=== PATIENT | male | born 1955 | race Caucasian/White ===

== ENCOUNTER → 2019-04-15 | Outpatient (CLI) | payer OTHER ==
--- NOTE | 2019-04-15 13:48 | PCVCIMAG ---
APPROVED REPORT Study performed: 04/15/2019 10:32:30 Exam: Stress Echocardiogram Indication: Dyspnea , CAD Patient Location: Echo lab Stress Nurse: Kori Torres RN Room #: 2 Status: routine Ht: 6 ft 1 in HR: 66 bpm BP: 140/84 mmHg Rhythm: NSR Medical History Medical History: CAD non obstructive Previous Cardiac Procedures: none Pretest Chest Pain Characteristics: No chest pain Exercise History: Physically active Procedure The patient underwent an Exercise Stress Test using the Connie Protocol. Blood pressure, heart rate, and EKG were monitored. An Echocardiogram was performed by page technician in four stages in quad fashion. At peak stress, four selected images were obtained and placed side by side with resting images for comparison. Stress Test Details Stress Test: Exercise stress testing was performed using a Connie protocol. HR Resting HR: 66 bpmMax Heart Rate (APMHR): 157 bpm Max HR Achieved: 164 bpmTarget HR (85% APMHR): 133 bpm % of APMHR: 104 Recovery HR: 95 bpm HR response to stress: Normal HR response to stress BP Resting BP: 140/84 mmHg Max BP: 184/66 mmHg Recovery BP: 194/83 mmHg BP response to stress: mildly hypertensive response to stress. ECG Resting ECG: Sinus Rhythm Stress ECG: Sinus Rhythm ST Change: Non-ischemic Maximum ST Deviation: 0 mm Arrhythmia: Rare PVC Recovery ECG: Sinus Rhythm Recovery ST Change: Non-ischemic Recovery ST Deviation: 0 mm Recovery Arrhythmia: Rare PVCs Clinical Reason for Termination: Maximal effort Stress Symptoms: Leg Fatigue Exercise duration: 9 min 53 sec Highest Stage Achieved: Stage 4: 4.2 mph at 16% grade. Exercise capacity: 164 METs Angina Score: None No complications. Stress ECG Conclusion The patient exercised according to the CONNIE protocol for 9:53 mins; achieving a work level of 13.20 METS. The resting heart rate of 66 bpm keli to a maximum heart rate of 164 bpm. This value represent 104% of the maximal, age-predicted heart rate. The resting blood pressure of 140/84 mmHg, keli to a maximum blood pressure of 194/86 mmHg. The exercise test was stopped due to fatigue. Saleem Treadmill Score is 9.0 which is Low risk. Pre-Stress Echo The resting Echocardiogram showed normal left ventricular contractility with an estimated Ejection Fraction of about 55-60%. Normal wall motion in all segments on baseline images. Post-Stress Echo The stress Echocardiogram showed normal left ventricular contractility with an estimated Ejection Fraction of about 65-70%. Normal augmentation of wall motion in all segments on post stress images. Clinical No clinical or ECG evidence for ischemia. Conclusion Clinical Response: Non-ischemic Exercise Capacity: Superior Stress ECG Response: Non-ischemic Stress Echo Images: Non-ischemic No clinical, EKG or echocardiographic evidence for ischemia. No echocardiographic evidence for exercise induced ischemia. Normal stress echocardiogram with maximal exercise stress. <Conclusion> No clinical, EKG or echocardiographic evidence for ischemia. No echocardiographic evidence for exercise induced ischemia. Normal stress echocardiogram with maximal exercise stress.
== END | disposition home or self-care (01) ==
LOC: PCVCIMAG 10:31
PROVIDERS: ATTEND Family Medicine
DX: I25.10 Atherosclerotic heart disease of native coronary artery without angina pectoris (principal); R06.00 Dyspnea, unspecified
CPT/HCPCS: 93325; 93351